=== PATIENT | female | born 1960 | race Caucasian/White ===

== ENCOUNTER 2017-04-14 09:22 | Outpatient (CLI) | payer OTHER | END 2017-04-14 09:26 | disposition home or self-care (01) | LOC: MAMO-SONO 09:22 | DX: Z12.31 Encounter for screening mammogram for malignant neoplasm of breast (principal); M60.19 Interstitial myositis, multiple sites ==

== ENCOUNTER 2019-11-29 13:55 | Outpatient (CLI) | payer OTHER | END 2019-11-29 14:18 | disposition home or self-care (01) | LOC: MAMO-SONO 13:55 | PROVIDERS: ATTEND Specialist | DX: Z12.31 Encounter for screening mammogram for malignant neoplasm of breast (principal); R10.31 Right lower quadrant pain; R10.32 Left lower quadrant pain; N60.11 Diffuse cystic mastopathy of right breast; N60.12 Diffuse cystic mastopathy of left breast ==